=== PATIENT | female | born 1970 | race Caucasian/White ===

== ENCOUNTER 2017-12-03 00:59 | Outpatient (CLI) | payer MEDICAID, SELFPAY ==
--- NOTE | 2017-12-03 12:55 | DI.REPORT_ITS ---
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 The previously described very large uterine fibroids again noted, measuring about 14 cm and 8 cm in greatest diameter respectively. No gross interval change in appearance of the uterus from previous ultrasound of 06/09/17. No free fluid identified in the cul de sac. Endometrial stripe measures about 14 mm in thickness. Right ovary contains a predominantly cystic complex mass measuring 19 mm in greatest diameter. Left ovary contains an 18 mm in greatest diameter moderately echogenic mildly heterogeneous mass with some peripheral increased vascularity on Doppler evaluation. The findings as described may represent bilateral hemorrhagic ovarian cysts. The possibility of neoplastic disease is not excluded on the basis of this examination and follow up pelvic ultrasound is recommended in 4-6 weeks to re-evaluate the ovaries.
== END 2017-12-03 01:00 ==
PROVIDERS: PCP Naturopath; Visit Provider Obstetrics & Gynecology Gynecology
DX: D25.1 Intramural leiomyoma of uterus (principal); N83.291 Other ovarian cyst, right side; N83.292 Other ovarian cyst, left side
CPT/HCPCS: 76830; 76856

== ENCOUNTER 2018-09-30 07:44 | Day surgery (SDC) | payer MEDICAID, SELFPAY ==
[2018-09-30] VITALS (9 sets, daily range): BP systolic 73–113; BP diastolic 41–61; PULSE 47–68; RESP 12–19; TEMP 36.1–36.5; O2SAT 95–100
--- NOTE | 2018-09-30 06:48 | ROE_ITS ---
Date of service: 09/30/18 Time of Service: 09:45 Operative Note DATE OF PROCEDURE: 09/30/18 PRE-OP DIAGNOSIS: Umbilical Hernia POST-OP DIAGNOSIS: same PROCEDURE: Primary Umbilical Hernia repair SURGEON: Pilar Monge IRON GUARDRAIL INSTALLER: Yohana Valdez ANESTHESIA: GETA and regional (Bilateral rectus block) ESTIMATED BLOOD LOSS: 5 PATHOLOGY: none sent COMPLICATIONS: None Patient was transported to: PACU Patient's condition: stable Indications: Mrs. Diego is a pleasant 48 year old female with a history of abdominal pain, 2 large fibroids and a small umbilical hernia who was seen in the office for elective umbilical hernia repair. Patient would prefer not having a mesh placed. The hernia felt very small in the office. Risks, benefits and complications have been reviewed. Complications include but are not limited to bleeding, pain, infection, injury to underlying structures like bowel and adverse reaction to the medication. Questions were entertained and answered to their satisfaction and they wished to proceed. No guarantees were given or implied. Findings: small <1 cm hernia defect with omentum in the sac. Procedure Description: After informed consent was obtained the patient was taken to the operating room and placed in a supine position. Monitors and SCDs were applied and a timeout was done. The patient's name, date of , procedure type, procedure site, allergies to medications, preoperative antibiotic, and DVT prophylaxis were all reviewed. Fire risk was assessed. Next anesthesia did a bilateral rectus block under ultrasound guidance. Please see their separate dictation. Once anesthesia was done the abdomen was prepped and draped in a sterile surgical fashion. 1% Lidocaine was injected into the dermis just under the umbilicus. An incision was made with a 15 blade under the umbilicus. Dissection was done with cautery through the subcutaneous tissues and through the umbilical stalk down to the fascia. The hernia defect was identified and measured < 1 cm. The hernia sac was opened and a small amount of omentum was identified and placed back into the peritoneum. The defect was small enough that I could not get my small finger into the peritoneum. Because of its small size it was repaired Primarily with a 0 Vicryl figure of eight suture. The umbilical stalk was attached back down to the fascia with the 0 vicryl suture. The dermis was re-approximated with a running 4-0 Vicryl. The skin was cleaned and dried and skin affix was applied. The patient was woken up and taken back to recovery in stable condition. There were no immediate complications. Sponge, instrument and needle counts were correct at the end of the case x2.
--- NOTE | 2018-09-30 06:48 | W.PM.DSUDISC ---
Discharge Plan Disposition Patient Disposition: HOME Condition: Good Discharge Details Reason For Visit: Umbilical hernia Attending Provider: Pilar Monge Primary Care Provider: Felecia Abernathy Home Meds and New Rx's Prescriptions: New acetaminophen [Tylenol] 325 mg Tablet 650 mg PO Q6H PRN PRNQty: 30 RF: 0 ibuprofen [IBU] 600 mg Tablet 600 mg PO Q6H PRN PRN (Reason: Pain) Qty: 30 RF: 0 Discharge Instructions Instructions: Ventral Hernia Repair (DC) Additional Instructions: Activity at Home after surgery: 1. Make sure you walk outside at least 4 times per day 2. You should be able to climb a flight of stairs 3. No driving while in pain or taking pain medications 4. No strenuous activity or heavy lifting for 4 weeks (open surgery) Diet, Nutrition, & wound healin. Avoid alcohol until after you are recovered from your surgery 2. Make sure to eat plenty of lean protein (meat, fish, eggs, cottage cheese, beans) 3. Eat a variety of fruits and vegetables. Eat plenty of high fiber foods to avoid constipation. 4. Drink plenty of liquids to stay hydrated and avoid constipation Pain Medications: 1. Alternate Tylenol 650 mg every 6 hours as needed and Ibuprofen 600 mg every 6 hours as needed 2. If a narcotic has been prescribed take as directed only for breakthrough pain For Constipation: 1. Take Milk of Magnesia or MiraLax as needed for constipation Other: 1. You may shower daily. Do not scrub the incisions 2. Do not soak the incisions for 1 week 3. You may alternate ice and heat as needed for pain and swelling Wound Care: 1. Keep the incisions clean and dry Please call our office if you develop: 1. Fevers >101.5 2. Nausea or Vomiting 3. Worsening pain 4. Redness and thick discharge from the wounds If after hours please call the Hospital at and ask to speak to the on-call surgeon Referrals: Pilar Monge MD [ [facility] STAFF PHYSICIAN] - 10/13/18 1:15 pm Activity:: No lifting, pulling or pushing >20 lb x 4 weeks Diet:: As Tolerated Discharge Orders Discharge Orders: Discharge Order (Routine); Ordered 09/30/18 Ordered By: Pilar Monge DS: Diagnosis Discharge Diagnosis (1) History of umbilical hernia repair: Status: Acute
--- NOTE | 2018-09-30 06:54 | PDOC.DSDIS_ITS ---
Discharge Plan Disposition Patient Disposition: HOME Condition: Good Discharge Details Reason For Visit: Umbilical hernia Attending Provider: Pliar Monge Primary Care Provider: Felecia Abernathy Home Meds and New Rx's Prescriptions: New acetaminophen [Tylenol] 325 mg Tablet 650 mg PO Q6H PRN PRNQty: 30 RF: 0 ibuprofen [IBU] 600 mg Tablet 600 mg PO Q6H PRN PRN (Reason: Pain) Qty: 30 RF: 0 Discharge Instructions Instructions: Ventral Hernia Repair (DC) Additional Instructions: Activity at Home after surgery: 1. Make sure you walk outside at least 4 times per day 2. You should be able to climb a flight of stairs 3. No driving while in pain or taking pain medications 4. No strenuous activity or heavy lifting for 4 weeks (open surgery) Diet, Nutrition, & wound healin. Avoid alcohol until after you are recovered from your surgery 2. Make sure to eat plenty of lean protein (meat, fish, eggs, cottage cheese, beans) 3. Eat a variety of fruits and vegetables. Eat plenty of high fiber foods to avoid constipation. 4. Drink plenty of liquids to stay hydrated and avoid constipation Pain Medications: 1. Alternate Tylenol 650 mg every 6 hours as needed and Ibuprofen 600 mg every 6 hours as needed 2. If a narcotic has been prescribed take as directed only for break through pain For Constipation: 1. Take Milk of Magnesia or MiraLax as needed for constipation Other: 1. You may shower daily. Do not scrub the incisions 2. Do not soak the incisions for 1 week 3. You may alternate ice and heat as needed for pain and swelling Wound Care: 1. Keep the incisions clean and dry Please call our office if you develop: 1. Fevers >101.5 2. Nausea or Vomiting 3. Worsening pain 4. Redness and thick discharge from the wounds If after hours please call the Hospital at and ask to speak to the on-call surgeon Referrals: Pilar Monge MD [ [facility] STAFF PHYSICIAN] - 10/13/18 1:15 pm Activity:: No lifting, pulling or pushing >20 lb x 4 weeks Diet:: As Tolerated Discharge Orders Discharge Orders: Discharge Order (Routine); Ordered 09/30/18 Ordered By: Pilar Monge DS: Diagnosis Discharge Diagnosis (1) History of umbilical hernia repair: Status: Acute
[2018-09-30] MEDS: Lactated Ringers 1,000 ML 80 ML IV (08:22)
[2018-09-30] MEDS: ceFAZolin 2 GM/50 ML BAG IVPB (09:20)
[2018-09-30] MEDS: Bupivacaine 0.25% Pres-Free 30 ML VIAL (09:33)
[2018-09-30] MEDS: Lidocaine 1% Pres-Free 5 ML VIAL (09:45)
== END 2018-09-30 12:46 | disposition home or self-care (01) ==
LOC: SUR 07:45
PROVIDERS: PCP Obstetrics & Gynecology Gynecology; Visit Provider Surgery
PROC: (CPT 49585; principal; 2018-09-30 09:00)
DX: K42.9 Umbilical hernia without obstruction or gangrene (principal); G89.18 Other acute postprocedural pain
CPT/HCPCS: 49585; 76942; 81025; J0690; J1100; J1885; J2250; J2405

== ENCOUNTER 2018-10-26 00:49 | Outpatient (CLI) | payer MEDICAID, SELFPAY ==
--- NOTE | 2018-10-26 12:59 | DI.US_ITS ---
SYMPTOM/DIAGNOSIS: F/U LARGE UTERINE FIBROIDS, D25.1 PELVIC ULTRASOUND: Pelvic ultrasound was performed transabdominally and transvaginally. There are very large uterine fibroids, one measures up to 20 cm. in diameter and the other about 9 cm. in diameter, these were previously noted and the largest was previously measured at about 14 cm. in diameter. These are very heterogeneous and vascular in appearance. The possibility of neoplastic disease is not excluded. Correlation with pelvic MRI is recommended. Tiny amount of free pelvic fluid is seen which is nonspecific. Ovaries grossly unremarkable. Limited scanning of the kidneys is unremarkable. CONCLUSION: Very large uterine fibroids as described, possible significant increase in size of the largest fibroid since 12/03/17. The possibility of malignant degeneration would have to be raised and correlation with pelvic MRI or biopsy is suggested.
== END 2018-10-26 01:09 ==
PROVIDERS: PCP Obstetrics & Gynecology Gynecology; Visit Provider Obstetrics & Gynecology Gynecology
DX: D25.1 Intramural leiomyoma of uterus (principal)
CPT/HCPCS: 76830; 76856

== ENCOUNTER 2018-12-24 10:04 | Outpatient (REF) | payer MEDICAID, SELFPAY ==
--- NOTE | 2018-12-24 09:40 | PAPFT_PTH ---
PATIENT: Kelly Diego LOC: [facility] U#:[id number] AGE/SX: 48/F ROOM: RE12/24/[address]: Felecia Abernathy : 1970 BED: DIS: 12/24/2018 SPEC #: [id number] RECD: 12/24/18 12:53 STATUS: JAMES SÁNCHEZ #: [id number] DARCIE: 12/24/18 09:[address]: Felecia Abernathy DEPT: [facility] Cytology RECD BY: Kiara Birch Tissues: 1 - CX/ENDOCX FOR PAP SMEARS Procedures: PAP THIN PREP/UVM Screening HPV DNA PROBE Comments: [id number]
== END 2018-12-24 10:24 ==
LOC: LBN 10:04
PROVIDERS: PCP Obstetrics & Gynecology Gynecology; Visit Provider Obstetrics & Gynecology Gynecology
DX: Z12.4 Encounter for screening for malignant neoplasm of cervix (principal); Z11.51 Encounter for screening for human papillomavirus (HPV)
CPT/HCPCS: 88142; 87624

== ENCOUNTER 2020-06-01 21:42 | Outpatient (REF) | payer MEDICAID, SELFPAY ==
[2020-06-01 21:18] LABS: HGB 12.2 g/dL (11.2-15.7); MCH 30.7 pg (27.0-33.0); MCHC 34.9 % (32.0-36.0); MCV 87.9 fL (80-95); MPV 11.3 fL (8.0-11.0); Platelet Count 283 10^3/uL (130-400); RBC 3.98 10^6/uL (3.93-5.22); RDW 11.7 % (11.7-14.6); RDW-SD 37.5 fL; WBC 7.27 10^3/uL (4.4-10.8)
[2020-06-01 21:34] LABS: Anion Gap 8.6 mmol/L (3-11); BUN 11 mg/dL (7-18); CO2 27.4 mmol/L (21.0-32.0); CREATININE 0.8 mg/dL (0.55-1.02); Calcium 8.8 mg/dL (8.5-10.1); Calculated LDL 85 mg/dL (<100); Chloride 106 mmol/L (98-107); Cholesterol 165 mg/dL (<200); Glucose 111 mg/dL (74-106); HDL Cholesterol 67 mg/dL (40-60); Potassium 4.3 mmol/L (3.5-5.1); Sodium 142 mmol/L (136-145); TSH (W/Ref FT4) 3.45 uIU/mL (0.36-3.74); Triglyceride 69 mg/dL (<150)
[2020-06-05 11:44] LABS: Hepatitis C Ab w Rflx HCV PCR Negative (Negative)
[2020-06-05 12:03] LABS: HIV-1/2 Ag & Ab Screen Negative (Negative)
== END 2020-06-01 21:43 | disposition home or self-care (01) ==
LOC: NCHCN 21:42
PROVIDERS: PCP Obstetrics & Gynecology Gynecology; Visit Provider Nurse Practitioner Family
DX: Z00.00 Encounter for general adult medical examination without abnormal findings (principal); R00.2 Palpitations; Z13.220 Encounter for screening for lipoid disorders; Z11.4 Encounter for screening for human immunodeficiency virus [HIV]; Z11.59 Encounter for screening for other viral diseases
CPT/HCPCS: 80048; 80061; 85027; 86803; 87389; 84443

== ENCOUNTER 2022-12-05 10:52 | Outpatient (REF) | payer MEDICAID, SELFPAY ==
[2022-12-06 11:33] LABS: Lyme Ab w Rflx to Lyme Confirm Negative (Negative)
== END 2022-12-05 10:53 | disposition home or self-care (01) ==
LOC: NCHCN 10:52
PROVIDERS: PCP Obstetrics & Gynecology Gynecology; Visit Provider Nurse Practitioner Family
DX: M25.551 Pain in right hip (principal); M25.552 Pain in left hip; Z11.8 Encounter for screening for other infectious and parasitic diseases
CPT/HCPCS: 86618

== ENCOUNTER 2024-05-03 13:53 | Outpatient (REF) | payer MEDICAID, SELFPAY ==
--- NOTE | 2024-05-03 10:45 | SKI_PTH ---
PATIENT: Kelly Diego LOC: [facility]#:[id number] AGE/SX: 54/F ROOM: RE05/03/[address]: Yoana Melton : 1970 BED: DIS: 05/03/2024 SPEC #: [id number] RECD: 05/03/24 16:51 STATUS: JAMES REQ #: [id number] DARCIE: 05/03/24 10:[address]: Yoana Melton DEPT: Surgical Specimen RECD BY: Kiara Birch ENTERED: 05/03/24 16:51 SP TYPE: CHATA RANDOLPH DR: Felecia Abernathy Tissues: 1 - SKIN BIOPSY(SHAVE/PUNCH) Procedures: IMMUNOPEROXIDASE STAIN SKIN LEVEL 4 Comments: [id number]
== END 2024-05-03 13:54 | disposition home or self-care (01) ==
LOC: NCHCN 13:53
PROVIDERS: PCP Obstetrics & Gynecology Gynecology; Visit Provider Nurse Practitioner Family
DX: D22.5 Melanocytic nevi of trunk (principal)
CPT/HCPCS: 88305; 88361